=== PATIENT | female | born 1985 | race Caucasian/White ===

== ENCOUNTER → 2019-03-29 | Outpatient (CLI) | payer BC ==
--- NOTE | 2019-03-29 13:11 | 2DMMODE ---
[place] [address] 2 D/M-MODE ECHOCARDIOGRAM Name: HENNY BATISTA Room: [facility]#: [id number] Admission: 03/29/19 Attend Phys: Víctor Moreira MD Discharge: Date of : 81 Date of Service: 03/29/19 1311 Report #: [id number] THIS REPORT FOR: //name// APPROVED REPORT Study performed: 03/29/2019 09:34:28 EXAM: Comprehensive 2D, Doppler, and color-flow Echocardiogram Patient Location: Out-Patient Status: routine BSA: 2.33 HR: 90 bpm BP: 128/59 mmHg Rhythm: NSR Other Information Study Quality: Good Indications Palpitations 2D Dimensions IVSd: 13.17 (7-11mm) LVOT Diam: 21.53 (18-24mm) LVDd: 49.10 mm PWd: 11.76 (7-11mm) Ascending Ao: 29.36 (22-36mm) LVDs: 22.18 (25-40mm) Aortic Root: 25.78 mm Volumes Left Atrial Volume (Systole) LA ESV Index: 17.70 mL/m2 Aortic Valve AoV Peak Erasto.: 1.80 m/s AO Peak Gr.: 13.00 mmHg LVOT Max P.26 mmHg AO Mean Gr.: 6.41 mmHg LVOT Mean P.84 mmHg LVOT Max V: 1.15 m/s AO V2 VTI: 30.89 cm LVOT Mean V: 0.79 m/s LEOPOLDO (VTI): 2.50 cm2 LVOT V1 VTI: 21.21 cm Mitral Valve E/A Ratio: 1.00 MV Decel. Time: 233.02 ms MV E Max Erasto.: 1.05 m/[place] [address] 2 D/M-MODE ECHOCARDIOGRAM Name: HENNY BATISTA Room: [facility]#: [id number] Admission: 03/29/19 Attend Phys: Víctor Moreira MD Discharge: Date of : 81 Date of Service: 03/29/19 1311 Report #: [id number] MV PHT: 67.57 ms MVA (PHT): 3.26 cm2 TDI E/Lateral E': 7.50 E/Medial E': 7.00 Medial E' Erasto.: 0.15 m/s Lateral E' Erasto.: 0.14 m/s Pulmonary Valve PV Peak Erasto.: 1.17 m/s PV Peak Gr.: 5.45 mmHg Left Ventricle The left ventricle is normal size. There is normal LV segmental wall motion. Mild concentric left ventricular hypertrophy. Left ventricular systolic function is normal. The left ventricular ejection fraction is within the normal range. LVEF is 65-70%. The left ventricular diastolic function is normal. Right Ventricle The right ventricle is normal size. The right ventricular systolic function is normal. Atria The left atrium size is normal. The right atrium size is normal. Aortic Valve The aortic valve is normal in structure. No aortic regurgitation is present. There is no aortic valvular stenosis. Mitral Valve The mitral valve is normal in structure. There is no mitral valve regurgitation noted. No evidence of mitral valve stenosis. Tricuspid Valve The tricuspid valve is normal in structure. Trace tricuspid regurgitation. Unable to assess PA pressure. Pulmonic Valve Pulmonic valve is not well visualized. There is no pulmonic valvular regurgitation. Great Vessels The aortic root is normal in size. IVC is normal in size and collapses >50% [place] [address] 2 D/M-MODE ECHOCARDIOGRAM Name: HENNY BATISTA Room: [facility]#: [id number] Admission: 03/29/19 Attend Phys: Víctor Moreira MD Discharge: Date of : 81 Date of Service: 03/29/19 1311 Report #: [id number] Pericardium There is no pericardial effusion. <Conclusion> Mild concentric left ventricular hypertrophy. LVEF is 65-70%. <ELECTRONICALLY SIGNED> By: Víctor Moreira MD, FACC 03/29/191310 10 10 Víctor Moreira MD, [facility] /INF
== END ==
LOC: M.CRD 03-07 10:00
DX: I51.7 Cardiomegaly (principal)